=== PATIENT | female | born 1990 | race Native Hawaiian/Other Pacific Islander ===

== ENCOUNTER 2016-03-26 12:39 | Outpatient (CLI) | payer OTHER ==
[2016-03-26 13:14] VITALS: BMI 53.0
== END 2016-03-26 13:53 | disposition home or self-care (01) ==
LOC: FBCOUT 12:39 → FBC 12:39 → FBCOUT 13:53
PROVIDERS: ATTEND Family Medicine
DX: O26.899 Other specified pregnancy related conditions, unspecified trimester (principal); R10.9 Unspecified abdominal pain; Z3A.00 Weeks of gestation of pregnancy not specified
CPT/HCPCS: 59025; 81002; G0463

== ENCOUNTER 2016-04-05 20:59 | Outpatient (CLI) | payer OTHER ==
[2016-04-05 21:23] VITALS: BMI 52.3
== END 2016-04-05 22:25 | disposition home or self-care (01) ==
LOC: FBCOUT 20:59 → FBC 21:03 → FBCOUT 22:25
PROVIDERS: ATTEND Family Medicine
DX: O47.9 False labor, unspecified (principal); Z3A.00 Weeks of gestation of pregnancy not specified
CPT/HCPCS: 59025; 81002; G0463

== ENCOUNTER 2016-04-07 05:00 | Inpatient (IN) | payer OTHER ==
--- NOTE | 2016-04-04 20:16 | PDOC1 ---
- HPI 25 year old at 39 2/7 weeks gestational age by LMP, confirmed with 9 4/7- week ultrasound who desires repeat LTCS for means of delivery due to history of prior LTCS. She also desires permanent sterilization. She presents for assessment and review of history in anticipation of her upcoming surgery. Today patient denies any changes in health. Her course has been followed for the following problem list. - Problem List (1) with 39 completed weeks gestation Status: Acute (2) Admission for sterilization Status: Acute (3) History of low transverse section Status: Acute (4) Obesity affecting in third trimester Status: Acute SOCIAL HISTORY: Marital status: not , FOB involved: yes, No Tobacco, alcohol use, or drug use. FAMILY HISTORY: No congenital abnormalities or twins. Home Medications: vitamins, received 250 mg IM Rocephin 04/03/16 for persistent UTI Allergies/Adverse Reactions: Allergies aspirin Allergy (Severe, Verified 03/26/16 13:06) Anaphylaxis father has severe aspirin allergy so pt has never taken it nitrofurantoin macrocrystalline [From Macrodantin] Allergy (Mild, Verified 03/26 13:06) Itching - Labs & Studies LABS: Blood Type-O positive, Antibody [NEG], Rubella [Immune], RPR-[Negative], HbsAg-[Negative], HIV-[Negative] Pap neg, GC/Chlamydia-[Negative], UA-E Coli UTI on first urine culture and 3-4 times during , 1 hr GTT-92, GBS-negative REVIEW OF DATES: LMP 06/27/15-> [facility] 04/02/16 Ultrasound on 09/12/15@ 9 4/7 WGA -> EDC 04/12/16 Ultrasound on 11/16/15 @ 19 2/7 WGA -> EDC 04/09/16 - Review of Systems negative - Physical Exam General: Afebrile, No Acute Distress Psych/Mental Status: Mood/Affect Appropriate Neurological: Grossly Intact, Alert, Oriented x 4 HEENT: Atraumatic, PERRLA, EOMI, Mucous membr. moist/pink Lungs: Clear to Auscultation Bilaterally Cardiovascular: Regular Rate and Rhythm, No Murmur Abdomen: Normal Bowel Sounds, Obese Genitourinary: Normal Female Genitalia, Other (cervix closed and long) Rectal Exam: Deferred Extremities: Full ROM, Edema (1+) Skin: Normal Color, Warm, Dry, Intact, No Rash - Assessment & Plan 21 y/o at 39 2/7 weeks by US who will present for schedule repeat LTCS. Discussed with patient the risks of and bilateral tubal ligation including infection, bleeding possibly requiring blood transfusion and even hysterectomy, damage to underlying structures including bowel, bladder, uterus, tubes, ovaries, baby, and ureter, as well as will have a scar and can have persistent pain and numbness at incision site. The patient agrees to proceed with LTCS and BTL and will arrive at scheduled time for preop. She was advised to avoid any food or drink 8 hours prior to scheduled surgery.
[2016-04-07] MEDS ORDERED: LACTATED RINGERS 1,000 ML IV SCH (05:23)
[2016-04-07] MEDS ORDERED: CEFAZOLIN SODIUM 2 GRAM DUPLEX 2 G in Premix (D5W) 50 ml 1 EACH IV PRN (05:23)
[2016-04-07] MEDS ORDERED: IV START KIT ONE (05:27)
[2016-04-07] MEDS ORDERED: CEFAZOLIN SODIUM 2 GRAM DUPLEX 50 ML IV ONE (05:28)
[2016-04-07] MEDS ORDERED: SODIUM CHLORIDE 0.9% FLUSH 10 ML ONE (05:28)
[2016-04-07 06:16] LABS: HEMATOCRIT 37.1 % (37.0-47.0); HEMOGLOBIN 12.3 gm/l (12.0-16.0); MEAN CELL VOLUME 87.9 fl (81.0-99.0); MEAN CORPUSCULAR HEMOGLOBIN 29.1 pg (27.0-31.0); MEAN CORPUSCULAR HGB CONC 33.2 g/dl (33.0-37.0); RED CELL DISTRIBUTION WIDTH 13.5 % (11.5-14.5)
[2016-04-07 06:25] VITALS: BMI 53.2
[2016-04-07] MEDS ORDERED: SPINAL PROCEDURAL TRAY 1 EACH ONE (07:10)
[2016-04-07] MEDS ORDERED: OXYTOCIN 10 UNITS/ML VIAL ONE (07:10)
[2016-04-07] MEDS ORDERED: BUPIVACAINE 0.75% SPINAL AMPUL 2 ML ONE (07:10)
[2016-04-07] MEDS ORDERED: ONDANSETRON 4 MG/2ML 2 ML VIAL ONE (07:10)
[2016-04-07] MEDS ORDERED: MORPHINE SULFATE (DURAMORPH) 1 MG/ML 10ML AMP ONE (07:11)
[2016-04-07] MEDS ORDERED: FENTANYL 100 MCG/2 ML VIAL ONE (07:11)
[2016-04-07] MEDS ORDERED: PROMETHAZINE HCL 25 MG/ML VIAL IM PRN (08:23)
[2016-04-07] MEDS ORDERED: EPHEDRINE SULFATE 50 MG/ML 1ML VIAL IV PRN (08:23)
[2016-04-07] MEDS ORDERED: HYDROMORPHONE HCL 1 MG/ML SYRINGE IV PRN (08:23)
[2016-04-07] MEDS ORDERED: NALBUPHINE HCL 20 MG/ML AMP IV PRN (08:23)
[2016-04-07] MEDS ORDERED: ONDANSETRON 4 MG/2ML 2 ML VIAL IV PRN ×2 (08:23→09:45)
[2016-04-07] MEDS ORDERED: NALOXONE HCL 0.4 MG/ML VIAL IV PRN (08:23)
[2016-04-07] MEDS ORDERED: HYDROMORPHONE HCL 2 MG/ML SYRINGE IV PRN (08:23)
[2016-04-07] MEDS ORDERED: [UNRECOGNIZED DRUG - REMARK] ONE (09:39)
[2016-04-07] MEDS ORDERED: OXYCODONE HCL 5 MG TABLET PO PRN (09:45)
[2016-04-07] MEDS ORDERED: LANOLIN 50 APPLIC/7G TUBE TP PRN (09:45)
[2016-04-07] MEDS ORDERED: OXYTOCIN IN LR 500 ML IV ONE (09:45)
[2016-04-07] MEDS ORDERED: ACETAMINOPHEN 500 MG TABLET PO PRN (09:45)
[2016-04-07] MEDS ORDERED: DIPHENHYDRAMINE HCL 50 MG/1 ML VIAL IV PRN (09:45)
[2016-04-07] MEDS ORDERED: DIPHENHYDRAMINE HCL 25 MG CAPSULE PO PRN (09:45)
[2016-04-07] MEDS ORDERED: PUMP TUBING ONE (10:54)
[2016-04-07] MEDS: KETOROLAC TROMETHAMINE 30 MG/ML 1 ML VIAL IV SCH ×3 (10:57→21:41)
--- NOTE | 2016-04-07 11:22 | PCMBPN ---
Brief Post Op Note: Date of Procedure: 04/07/16 Start Time: 0759 Preoperative Diagnosis: 1. 39 week 2. Desired repeat Section and bilateral tubaligation 3. Obesity Postoperative Diagnosis: 1. [Same] Procedure: Repeat Low Transverse Section Surgeon: Marianne Dorman MD Assist:Colt Santiago MD Anesthesia: Spinal with Epidural Findings: Normal anatomy, obesity Condition: Stable Complications: None IV Fluids: 1800 mLs of LR, 2 grams Ancef Urine Output: 125 mLs Estimated Blood Loss: 400 mLs Tourniquet Time: [N/A] Specimens: Bilateral fallopian tubes Implants: None Drains: [N/A]
--- NOTE | 2016-04-07 11:32 | PDOC37 ---
Procedure: Repeat Low Transverse Section Date of Procedure: 04/07/16 Start Time: 075 Preoperative Diagnosis: 1. 39 week intrauterine . 2. Desires repeat LTCS and BTL 3. Obesity Postoperative Diagnosis: Same Surgeon: Marianne Dorman MD Assist: Colt Santiago MD Indication for Procedure: 25 year old, at 39 weeks 2 days admitted for scheduled repeat low transverse section with bilateral tubaligation. Anesthesia: Spinal and Epidural with Duramorph Complications: None Estimated Blood Loss: 400 mLs IV Fluids: 1800 mLs of LR Medications: 2 gm of Ancef for routine prophylaxis. 30 units of Pitocin. Urine Output: 125 mLs of clear urine Findings: Fluid clear. Normal uterus, ovaries, and tubes. Procedure: The patient was taken to the operating room where spinal and epidural anesthesia was found to be adequate. She was then prepared and draped in the normal sterile fashion in the dorsal supine position with a leftward tilt. A timeout was performed. A [place] skin incision was then made with the scalpel and carried through to the underlying layer of fascia with the scalpel. The fascia was incised in the midline and the incision extended laterally with the Amaral scissors. The superior aspect of the fascial incision was then grasped with the Bayron clamps, elevated, and the underlying rectus muscles dissected off bluntly and sharply where needed. Attention was then turned to the inferior aspect of the incision which, in a similar fashion, was grasped, tented up with the Bayron clamps, and the rectus muscle dissected off bluntly and sharply with Amaral scissors. The rectus muscles were then in the midline, and the peritoneum was identified and entered bluntly. The peritoneal incision was then extended with good visualization of the bladder. The Beak retractor was then inserted and the vesicouterine peritoneum identified, grasped with pick-ups and entered sharply with the Metzenbaum scissors. The incision was then extended laterally and the bladder flap created digitally. The lower uterine segment incised in a transverse fashion with the scalpel. The uterine incision was then extended laterally by pulling superolaterally on both sides. Membranes were ruptured and fluid was clear. The infant's head was flexed out of OA position and delivered atraumatically. The nose and mouth were suctioned with bulb suction and the cord was clamped and cut. The infant was handed off to the waiting medical staff assistant. The placenta was then delivered with gentle cord traction. The uterus was then exteriorized and cleared of all clots and debris. The uterine incision was repaired with 0 vicryl in a running, locked fashion. Excellent hemostasis was achieved and patient had a tubal so imbricating layer was not done. Bilateral tubal ligation: Attention was then turned to the patient's bilateral tubal ligation. A [place] was used to apple picker the left fallopian tube and a Modified [place]-type of tubal ligation was performed using 0 Vicryl suture, ligating each tube twice. The midportion was then excised and submitted for pathology. The same procedure was done on the opposite side. Electrocautery used on the fimbrial ends. Hemostasis of stumps was excellent. The gutters were cleared of all clots. The uterus was returned to the abdomen. The peritoneum was closed with Vicryl. The fascia was reapproximated with 0 Vicryl in a running fashion. The subcutaneous tissue was reapproximated Chromic. The skin was closed with miryam. The patient tolerated the procedure well. Sponge, lap and needle counts were correct times three. A debriefing was held at the end of the procedure with anesthesia and nursing staff. The patient was taken to the recovery room in stable condition. She had a viable infant female in stable condition.
[2016-04-07] MEDS: LACTATED RINGERS 1,000 ML IV SCH ×2 (12:05→21:41)
[2016-04-07] MEDS: DOCUSATE SODIUM 100 MG CAPSULE PO SCH (21:43)
[2016-04-07] MEDS: IBUPROFEN 800 MG TABLET PO PRN (23:25)
[2016-04-08 06:10] LABS: HEMATOCRIT 33.1 % (37.0-47.0); HEMOGLOBIN 10.9 gm/l (12.0-16.0)
[2016-04-08] MEDS: LACTATED RINGERS 1,000 ML IV SCH (06:55)
[2016-04-08] MEDS: KETOROLAC TROMETHAMINE 30 MG/ML 1 ML VIAL IV SCH (06:56)
[2016-04-08] MEDS: IBUPROFEN 800 MG TABLET PO PRN ×3 (07:07→19:43)
[2016-04-08] MEDS: PRENATAL VIT/FE FUMARATE/FA 1 TABLET PO SCH (09:04)
[2016-04-08] MEDS: DOCUSATE SODIUM 100 MG CAPSULE PO SCH ×3 (09:04→21:34)
--- NOTE | 2016-04-08 19:25 | PDOC44 ---
- Subjective Day: 1 Reports Flatus, Reports Pain Tolerable, Reports (and bottle feeding), Reports Lochia Light, Reports Tolerating Clear Liquids, Denies Nausea , Denies Fever - Objective Temp Pulse Resp BP Pulse Ox 98.3 F 77 18 138/72 96 04/08/16 14:15 04/08/16 14:15 04/08/16 14:15 04/08/16 14:15 04/08/16 01:31 Lab Results 04/08/16 05:30 Hgb 10.9 L Hct 33.1 L Current Medications Generic Name Dose Route Start Last Admin Trade Name Freq PRN Reason Stop Dose Admin Acetaminophen 1,000 mg 04/07/16 09:45 Tylenol PO Q6H PRN Pain or Temperature > 100.5 F Diphenhydramine HCl 25 - 50 mg 04/07/16 09:45 Benadryl PO Q6H PRN Itching (Mild/Moderate) Diphenhydramine HCl 25 - 50 mg 04/07/16 09:45 Benadryl IV Q6H PRN Itching (Severe) Docusate Sodium 100 mg 04/07/16 21:00 04/08/16 09:04 Colace PO 100 mg BID BRIT Administration Emollient Ointment 1 applic 04/07/16 09:45 Dob-O-Cdvfbr TP PRN PRN sore nipples Lactated Ringer's 1,000 mls @ 125 mls/hr 04/07/16 11:15 04/08/16 06:55 Lactated Ringers IV Not Given .Q8H BRIT Ibuprofen 800 mg 04/07/16 11:32 04/08/16 14:13 Motrin PO 800 mg Q6H PRN Administration Pain Multivi/Iron Carb/Fe Sulf/FA/Prenat 1 tab 04/08/16 09:00 04/08/16 09:04 Plus PO 1 tab DAILY BRIT Administration Ondansetron HCl 4 mg 04/07/16 09:45 Zofran IV Q6H PRN Nausea/Vomiting Oxycodone HCl 5 - 10 mg 04/07/16 09:45 Roxicodone PO Q3H PRN Pain (Severe) Oxycodone/Acetaminophen 1 - 2 tab 04/07/16 09:45 Percocet 5/325 PO Q4H PRN Pain (Moderate) Sodium Chloride 10 ml 04/07/16 09:00 04/08/16 01:52 Normal Saline 10ml Flush IV 10 ml Q8HR BRIT Administration Sodium Chloride 10 ml 04/07/16 09:45 Normal Saline 10ml Flush IV PRN PRN IV Flush - Physical Exam General: Afebrile, No Acute Distress Psych/Mental Status: Mood/Affect Appropriate, Bonding Well Neurological: Alert, Oriented x 4 HEENT: Atraumatic, PERRLA, EOMI, Mucous membr. 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 Disposition: Stable, Other (anticipate discharge in 2 days)
[2016-04-08] MEDS: OXYCODONE/ACETAMINOPHEN 5/325 MG TABLET PO PRN (21:06)
[2016-04-09] MEDS: IBUPROFEN 800 MG TABLET PO PRN ×4 (01:33→21:26)
[2016-04-09] MEDS: OXYCODONE/ACETAMINOPHEN 5/325 MG TABLET PO PRN (01:33)
[2016-04-09] MEDS: PRENATAL VIT/FE FUMARATE/FA 1 TABLET PO SCH (08:44)
[2016-04-09] MEDS: DOCUSATE SODIUM 100 MG CAPSULE PO SCH ×2 (08:44→21:26)
[2016-04-09] MEDS ORDERED: PRENATAL VIT/FE FUMARATE/FA 1 TABLET PO SCH (09:00)
--- NOTE | 2016-04-09 09:17 | PDOC44 ---
- Subjective Day: 1 Reports Flatus, Reports Pain Tolerable, Reports Lochia Light, Reports Tolerating Regular Diet, Denies , Denies Nausea, Denies Vomiting - Objective Temp Pulse Resp BP Pulse Ox 98.9 F 86 18 124/57 96 04/09/16 08:48 04/09/16 08:48 04/09/16 08:48 04/09/16 08:48 04/08/16 01:31 Current Medications Generic Name Dose Route Start Last Admin Trade Name Freq PRN Reason Stop Dose Admin Acetaminophen 1,000 mg 04/07/16 09:45 Tylenol PO Q6H PRN Pain or Temperature > 100.5 F Diphenhydramine HCl 25 - 50 mg 04/07/16 09:45 Benadryl PO Q6H PRN Itching (Mild/Moderate) Diphenhydramine HCl 25 - 50 mg 04/07/16 09:45 Benadryl IV Q6H PRN Itching (Severe) Docusate Sodium 100 mg 04/07/16 21:00 04/09/16 08:44 Colace PO 100 mg BID BRIT Administration Emollient Ointment 1 applic 04/07/16 09:45 Hrr-J-Itwggy TP PRN PRN sore nipples Ibuprofen 800 mg 04/07/16 11:32 04/09/16 08:44 Motrin PO 800 mg Q6H PRN Administration Pain Multivi/Iron Carb/Fe Sulf/FA/Prenat 1 tab 04/08/16 09:00 04/09/16 08:44 Plus PO 1 tab DAILY BRIT Administration Ondansetron HCl 4 mg 04/07/16 09:45 Zofran IV Q6H PRN Nausea/Vomiting Oxycodone HCl 5 - 10 mg 04/07/16 09:45 Roxicodone PO Q3H PRN Pain (Severe) Oxycodone/Acetaminophen 1 - 2 tab 04/07/16 09:45 04/09/16 01:33 Percocet 5/325 PO 1 tab Q4H PRN Administration Pain (Moderate) Sodium Chloride 10 ml 04/07/16 09:45 Normal Saline 10ml Flush IV PRN PRN IV Flush - Physical Exam General: Afebrile, No Acute Distress Psych/Mental Status: Mood/Affect Appropriate, Bonding Well Neurological: Alert, Oriented x 4, Cranial Nerves 3-12 Intact HEENT: Atraumatic, PERRLA, EOMI, Mucous membr. moist/pink Lungs: Clear to Auscultation Bilaterally Cardiovascular: Regular Rate and Rhythm, No Murmur Breast: Soft, Nipples Intact Fundus: Firm, Midline, At Umbilicus Abdomen: Normal Bowel Sounds Lochia: Light Extremities: Full ROM, No Edema, No Tenderness Skin: Normal Color, Warm, Dry, Intact, No Rash Wound ETHICS OFFICER: Dressing Clean/Dry/Intact, Well Approximated, [place] Intact - Problems:Assessment/Plan (1) Admission for sterilization Status: AcuteAssessment/Plan: recovery going well. (2) Obesity affecting in third trimester Status: AcuteAssessment/Plan: weight loss will be advised ongoing in outpatient setting. (3) delivery due to maternal disorder, delivered, curr hospitaliz Status: AcuteAssessment/Plan: stable post op day 2, continue routine post op care. Disposition: Stable, Anticipate DC Home Tomorrow
--- NOTE | 2016-04-09 09:33 | SURGPATH ---
[facility] [address] [place] [id number] Patient Name: PILI CARMEN MR#: [id number] : 1990 Gender: F Specimen #: [id number] Collected: 04/07/2016 Received: 04/08/2016 Reported: 04/09/2016 Submitting Phys: RICHARD HANKS Copy To Phys: [facility] Clinical History / Pre-Operative Diagnosis: ELECTIVE STERILIZATION Specimen Source / Surgical Procedure Performed: SEGMENT OF RIGHT FALLOPIAN TUBE (WITH STITCH), SEGMENT OF LEFT FALLOPIAN TUBE-BILATERAL TUBAL LIGATION Interpretation: RIGHT AND LEFT FALLOPIAN TUBES, TUBAL LIGATION: -SEGMENTS OF FALLOPIAN TUBES PRESENT Electronically Signed Out Abhijit Adamson M.D. Gross Description: The specimen is received in a formalin filled container labeled with the patient's name and "fallopian tube segments". Two cylindrical segments of francisco tissue are each 1.0 x 0.5 cm. One segment has an attached suture and is inked black. A floor representative cross-section of each is submitted in one cassette. Amaury Phan PShirleyA. Microscopic Description: A slide contains unremarkable cross sections of both fallopian tubes. 1: 90804(2) Q44.2
[2016-04-10] MEDS: IBUPROFEN 800 MG TABLET PO PRN (03:35)
--- NOTE | 2016-04-10 08:33 | PDOC39B ---
Hospital Course: ADMIT DATE: 04/07/16 DISCHARGE DATE: 04/10/16 ADMISSION DIAGNOSES: 39 week , Obesity, desired repeat LTCS and BTL PROCEDURES: Low Transverse Section with bilateral tubaligation HISTORY OF PRESENT ILLNESS: 25 year old G3 T2 L2 at 39 weeks 2 days presented for repeat LTCS and BTL. Surgery went well without complication and post operative recovery was unremarkable. HOSPITAL COURSE: The patient progressed normally in the post operative period. By day of discharge the patient is ambulating, eating, voiding, and passing flatus without difficulty. Pain is controlled and lochia is appropriate. She is [] - Physical Exam Vital Signs: Temp Pulse Resp BP Pulse Ox 98.2 F 89 16 147/71 96 04/10/16 03:33 04/10/16 03:33 04/10/16 03:33 04/10/16 03:33 04/08/16 01:31 General: Afebrile, No Acute Distress Psych/Mental Status: Mood/Affect Appropriate Neurological: Alert, Oriented x 4 HEENT: Atraumatic, PERRLA, EOMI, Mucous membr. moist/pink Lungs: Clear to Auscultation Bilaterally Cardiovascular: Regular Rate and Rhythm, No Murmur Breast: Soft, Nipples Intact Fundus: Firm, Midline, Below Umbilicus Abdomen: Normal Bowel Sounds Genitourinary: Normal Female Genitalia Lochia: Light Extremities: Full ROM, No Edema Skin: Normal Color, Warm, Dry, Intact, No Rash Wound: Dressing Clean/Dry/Intact, Well Approximated, [place] Intact, No Erythema - Discharge Diagnosis (1) Admission for sterilization Status: AcuteAssessment/Plan: recovery normal. Discharge home. (2) Obesity affecting in third trimester Status: AcuteAssessment/Plan: weight loss will be advised ongoing in outpatient setting. (3) delivery due to maternal disorder, delivered, curr hospitaliz Status: AcuteAssessment/Plan: stable post op day 3, discharge home. - Discharge Plan Condition: Good Disposition: Home Instruction Forms: Section Discharge Instructions Prescriptions: Ibuprofen [IBUPROFEN 800 MG TABLET (SHF)] 800 mg PO Q6H PRN #30 tablet PRN Reason: Pain Oxycodone HCl/Acetaminophen [PERCOCET 5/325 MG TABLET (SHF)] 1 - 2 tab PO Q4H PRN #30 tablet PRN Reason: Pain (Moderate) Follow-Up: Marianne Dorman MD [Primary Care Provider] - In 2-3 days
[2016-04-10 09:06] VITALS: BP 130/65
== END 2016-04-10 12:18 | disposition home or self-care (01) | DRG 767 ==
LOC: FBC 05:00
PROVIDERS: ADMIT Family Medicine; ATTEND Family Medicine
PROC: 10E0XZZ Delivery of Products of Conception, External Approach (ICD-10-PCS; principal; 2016-04-07)
PROC: 0UL70ZZ Occlusion of Bilateral Fallopian Tubes, Open Approach (ICD-10-PCS; 2016-04-07)
DX: O99.214 Obesity complicating childbirth (principal); E66.9 Obesity, unspecified; O34.211 Maternal care for low transverse scar from previous cesarean delivery; Z37.0 Single live birth; Z3A.39 39 weeks gestation of pregnancy; Z30.2 Encounter for sterilization